=== PATIENT | male | born 1965 | race Caucasian/White ===

== ENCOUNTER 2020-09-23 06:22 | Emergency (ER) | payer BC ==
--- NOTE | 2020-09-23 06:26 | EDM.PDOC ---
<NunoPascual Chacho - Last Filed: 09/23/20 07:53> ED HPI GENERAL MEDICAL PROBLEM - General Chief Complaint: Lower Extremity Injury/Pain Stated Complaint: LEFT LEG PAIN Time Seen by Provider: 09/23/20 06:30 - Related Data Allergies Allergy/AdvReac Type Severity Reaction Status Date / Time No Known Allergies Allergy Verified 09/23/20 06:30 Home Meds: Home Meds Acetaminophen [Pain Reliever] 325 mg PO DAILY PRN 11/03/15 [History] Lisinopril 10 mg PO DAILY 11/03/15 [History] traMADol [Ultram] 50 mg PO QID PRN 11/03/15 [History] Iron,Carb/Vit C/Vit B12/Folic [Iron 100 Plus Tablet] 1 tab PO DAILY 02/14/16 [History] Multivitamin [Multivitamins] 1 tab PO DAILY 02/14/16 [History] Pantoprazole [ProTONIX] 40 mg PO DAILY 07/09/18 [History] Acetaminophen/HYDROcodone [[place] 325-10 MG] 1 tab PO Q6H PRN #14 tablet 09/23/20 [Rx] diazePAM [Valium] 5 mg PO TID PRN #15 tab 09/23/20 [Rx] methylPREDNISolone [Medrol Dose Pack] 4 mg PO DAILY #21 tab 09/23/20 [Rx] ED ROS GENERAL - Review of Systems Review Of Systems: See Below ED EXAM, GENERAL - Physical Exam Exam: See Below Departure - Departure Time of Disposition: 07:53 Disposition: Home, Self-Care 01 Clinical Impression: Sciatica - Discharge Information Prescriptions: methylPREDNISolone [Medrol Dose Pack] 4 mg PO DAILY #21 tab Acetaminophen/HYDROcodone [[place] 325-10 MG] 1 tab PO Q6H PRN #14 tablet PRN Reason: Pain (Severe 7-10) diazePAM [Valium] 5 mg PO TID PRN #15 tab PRN Reason: Headache Instructions: Sciatica Referrals: Troy Myers MD [Primary Care Provider] - Forms: ED Department Discharge Additional Instructions: Marissa Quinn [facility] - Primary Care [address] [place] [id number] [address] [id number] The following information is given to patients seen in the emergency department who are being discharged to home. This information is to outline your options for follow-up care. We provide all patients seen in our emergency department with a follow-up referral. The need for follow-up, as well as the timing and circumstances, are variable depending upon the specifics of your emergency department visit. If you don't have a primary care physician on staff, we will provide you with a referral. We always advise you to contact your personal physician following an emergency department visit to inform them of the circumstance of the visit and for follow-up with them and/or the need for any referrals to a consulting specialist. The emergency department will also refer you to a specialist when appropriate. This referral assures that you have the opportunity for follow-up care with a specialist. All of these measure are taken in an effort to provide you with optimal care, which includes your follow-up. Under all circumstances we always encourage you to contact your private physician who remains a resource for coordinating your care. When calling for follow-up care, please make the office aware that this follow-up is from your recent emergency room visit. If for any reason you are refused follow-up, please contact the [facility] Emergency Department at and asked to speak to the emergency department charge nurse. <Jose Antonio Mitchell - Last Filed: 09/23/20 19:40> ED HPI GENERAL MEDICAL PROBLEM - History of Present Illness INITIAL COMMENTS - FREE TEXT/NARRATIVE: History of present illness: [] 55-year-old male who has multiple visits in the past for back pain and sciatica has been up all night with severe pain in the left lower extremity that radiates from the hip down the thigh and all the way to the foot. He has some paresthesia of the left foot. He has not lost control of his bowel or bladder. Nor has he lost his motor function or sensation to touch in the lower extremity or the saddle area. The patient is worse with movement. Pain is moderately severe. Review of systems: As per history of present illness and below otherwise all systems reviewed and negative. Past medical history: As per history of present illness and as reviewed below otherwise noncontributory. Surgical history: As per history of present illness and as reviewed below otherwise noncontr ibutory. Social history: No reported history of drug or alcohol abuse. Family history: As per history of present illness and as reviewed below otherwise noncontributory. Physical exam: Constitutional - well developed, well-nourished and in no acute distress HEENT - normocephalic, no evidence of trauma - external nose and mouth normal - no mass in neck and no JVD - mucosae moist EYES - full EOM, PERRL, no icterus - no evidence of inflammation, injection, or drainage Respiratory - no respiratory distress, equal bilateral expansion Musculoskeletal leg raise negative for radicular pain. No gross deformity of long bones or joints - no tenderness, swelling or edema Neurologic - Alert and oriented times four - CN II-XII grossly intact - motor sensory and coordination symmetrically normal Psychiatric - appropriate mood and affect with normal thought content Hematologic - No petechiae or purpura - mucosa appropriate color and sclera not pale - normal nail bed color and refill Integument - no rash or evidence of trauma - normal turgor Diagnostics: [] Therapeutics: [] Impression: [] Plan: [] Definitive disposition and diagnosis as appropriate pending reevaluation and review of above. left lower extremity Pain Score (Numeric/FACES): 8 Past Medical History HEENT History: Reports: Impaired Vision, Other (See Below) Other HEENT History: wears glasses Cardiovascular History: Reports: Hypertension Respiratory History: Reports: Sleep Apnea Other Respiratory History: Using CPAP sometimes Gastrointestinal History: Reports: Cholelithiasis, GI Bleed, Other (See Below) Other Gastrointestinal History: bleeding ulcer Genitourinary History: Reports: None Musculoskeletal History: Reports: Arthritis, Back Pain, Chronic, Fracture, Other (See Below) Other Musculoskeletal History: sciatic pain Neurological History: Reports: Head Trauma Psychiatric History: Reports: None Endocrine/Metabolic History: Reports: None Hematologic History: Reports: Anemia, Blood Transfusion(s) Immunologic History: Reports: None Oncologic (Cancer) History: Reports: None Dermatologic History: Reports: None - Infectious Disease History Infectious Disease History: Reports: Chicken Pox - Past Surgical History Head Surgeries/Procedures: Reports: None HEENT Surgical History: Reports: Cataract Surgery GI Surgical History: Reports: Bariatric Procedure, Cholecystectomy, Other (See Below) Male Surgical History: Reports: None Neurological Surgical History: Reports: Lumbar Spine Musculoskeletal Surgical History: Reports: Other (See Below) Social & Family History - Family History Family Medical History: No Pertinent Family History Course - Vital Signs Last Recorded V/S: Last Vital Signs Temp 36.6 C 09/23/20 08:04 Pulse 77 09/23/20 08:04 Resp 16 09/23/20 08:04 BP 108/75 09/23/20 08:04 Pulse Ox 94 L 09/23/20 08:04 - Orders/Labs/Meds Meds: Medications Discontinued Medications Generic Name Dose Route Start Last Admin Trade Name Freq PRN Reason Stop Dose Admin Hydrocodone Bitart/Acetaminophen 1 tab 09/23/20 06:58 09/23/20 07:27 Acetaminophen/Hydrocodone 325-10 Mg Tab PO 09/23/20 06:59 1 tab ONETIME ONE Administration Dexamethasone 10 mg 09/23/20 06:37 09/23/20 06:42 Dexamethasone 10 Mg/Ml Sdv IM 09/23/20 06:38 10 mg STAT STA Administration Diazepam 5 mg 09/23/20 06:37 09/23/20 06:51 Diazepam 2 Mg Tab PO 09/23/20 06:38 5 mg ONETIME ONE Administration Departure - Departure Condition: Good Sepsis Event Note (ED) - Focused Exam Vital Signs: Vital Signs Temp Pulse Resp BP Pulse Ox 09/23/20 08:04 36.6 C 77 16 108/75 94 L
[2020-09-23] MEDS ORDERED: Diazepam 2 MG Tab PO ONE (06:37)
[2020-09-23] MEDS ORDERED: Dexamethasone 10 MG/ML SDV IM STA (06:37)
[2020-09-23] MEDS ORDERED: Acetaminophen/HYDROcodone 325-10 MG Tab PO ONE (06:58)
[2020-09-23 08:08] VITALS: BP 108/75; PULSE 77
== END 2020-09-23 08:04 | disposition home or self-care (01) ==
LOC: MW.ED 06:22
DX: M54.32 Sciatica, left side (principal); I10 Essential (primary) hypertension; Z79.899 Other long term (current) drug therapy
CPT/HCPCS: 96372; 99283; A9270; J1100

== ENCOUNTER 2023-04-22 20:33 | Emergency (ER) | payer BC ==
[2023-04-22] MEDS ORDERED: Diazepam 2 MG Tab PO ONE (21:01)
[2023-04-22] MEDS ORDERED: Acetaminophen/HYDROcodone 325-10 MG Tab PO ONE (21:01)
[2023-04-22 21:13] VITALS: BP 137/83; PULSE 77
== END 2023-04-22 21:11 | disposition home or self-care (01) ==
LOC: MW.ED 20:33
DX: M54.30 Sciatica, unspecified side (principal); I10 Essential (primary) hypertension; G47.30 Sleep apnea, unspecified; Z79.899 Other long term (current) drug therapy
CPT/HCPCS: 99283; A9270

== ENCOUNTER 2024-05-26 08:56 | Day surgery (SDC) | payer BC ==
[2024-05-26] MEDS: Lactated Ringers 1,000 ML IV SCH (09:25)
[2024-05-26] MEDS ORDERED: propofoL 500 MG/50 ML 50 ML ONE (09:27)
[2024-05-26] MEDS ORDERED: Lactated Ringers 1,000 ML IV SCH (11:00)
[2024-05-26 13:04] VITALS: BP 123/91; PULSE 53
== END 2024-05-26 11:18 | disposition home or self-care (01) ==
LOC: MW.SDS 08:56
PROVIDERS: ATTEND Surgery
DX: Z12.11 Encounter for screening for malignant neoplasm of colon (principal); I10 Essential (primary) hypertension; I72.3 Aneurysm of iliac artery; G47.30 Sleep apnea, unspecified; F17.290 Nicotine dependence, other tobacco product, uncomplicated; Z79.899 Other long term (current) drug therapy
CPT/HCPCS: 45378; J2704; J7120